=== PATIENT | female | born 1970 | race American Indian/Alaskan Native ===

== ENCOUNTER 2019-02-02 18:49 | Observation (INO) | payer OTHER ==
[2019-02-02] MEDS ORDERED: ASPIRIN 325 MG TAB PO ONE (19:30)
--- NOTE | 2019-02-02 19:30 | Event Note ---
ED Screening Note Date of service: 02/02/19 Time: 19:26 ED Screening Note: 48 y o female presents with cp x yesterday, no current meds radiating pain to left shoulder This initial assessment/diagnostic orders/clinical plan/treatment(s) is/are subject to change based on patients health status, clinical progression and re- assessment by fellow clinical providers in the ED. Further treatment and workup at subsequent clinical providers discretion. Patient/guardian urged not to elope from the ED as their condition may be serious if not clinically assessed and managed. Initial orders include: ekg labs, cxr
[2019-02-02] MEDS ORDERED: ASPIRIN 325 MG TAB ONE (19:34)
--- NOTE | 2019-02-02 20:02 | XRay Report ---
CHEST 2 VIEWS INDICATION / CLINICAL INFORMATION: Chest Pain. COMPARISON: None available. FINDINGS: SUPPORT DEVICES: None. HEART / MEDIASTINUM: No significant abnormality. LUNGS / PLEURA: No significant pulmonary or pleural abnormality. No pneumothorax. ADDITIONAL FINDINGS: No significant additional findings. IMPRESSION: 1. No acute finding. Signer Name: Noah Bean MD Signed: 02/02/2019 7:58 PM Workstation Name: [id number]
[2019-02-02 20:53] LABS: Basophils # (Auto) 0.1 K/mm3 (0.0-0.1); Basophils % (Auto) 0.7 % (0.0-1.8); Eosinophils # (Auto) 0.1 K/mm3 (0.0-0.4); Eosinophils % (Auto) 0.8 % (0.0-4.3); Hematocrit 35.2 % (30.3-42.9); Hemoglobin 11.3 gm/dl (10.1-14.3); Lymphocytes # (Auto) 1.7 K/mm3 (1.2-5.4); Lymphocytes % (Auto) 22.8 % (13.4-35.0); Mean Corpuscular HGB Conc 32 % (30-34); Mean Corpuscular Volume 87 fl (79-97); Monocytes # (Auto) 0.6 K/mm3 (0.0-0.8); Monocytes % (Auto) 8.3 % (0.0-7.3); Platelet Count 217 K/mm3 (140-440); Red Blood Count 4.06 M/mm3 (3.65-5.03); Red Cell Distribution Width 15.7 % (13.2-15.2)
[2019-02-02 21:09] LABS: BUN/Creatinine Ratio 12; Blood Urea Nitrogen 14 mg/dL (7-17); Calcium 8.8 mg/dL (8.4-10.2); Hemolysis Index 5
--- NOTE | 2019-02-03 00:35 | Emergency Department Report ---
ED Chest Pain HPI - General Chief Complaint: Chest Pain Stated Complaint: CHESTPAIN/LEFT SHOULDER Time Seen by Provider: 02/03/19 00:21 Source: patient Mode of arrival: Ambulatory Limitations: No Limitations - History of Present Illness Initial Comments: 48 yo female with a past medical history obesity and hypertension presents to the hospital complaining of intermittent chest pain since yesterday. Patient describes pain as a pressure sensation that it comes and go without aggravating or alleviating factors. Patient complains of some dyspnea on exertion, nausea without vomiting, left shoulder pain radiating to the arm, and diarrhea. Patient states last stress test was 4-5 years ago. She does not smoke cigarettes. Her mom has "heart problems". She has a history of a DVT approximately 7 years ago treated with anticoagulants. Patient is not anticoagulated currently and does not have a filter. She denies recent travel, calf tenderness, or leg edema. Patient has not been on blood pressure medication since her gastric sleeve surgery and weight loss. Last physical was 6 months ago and her blood pressure was okay. PMD: [facility]. Severity scale (0 -10): 5 - Related Data Previous Rx's Medication Instructions Recorded Last Taken Type Pantoprazole [Protonix TAB] 40 mg PO QDAY #14 tablet 02/03/19 Unknown Rx Allergies Allergy/AdvReac Type Severity Reaction Status Date / Time ofloxacin [From Floxin] Allergy Hives Verified 02/02/19 18:50 Heart Score - HEART Score History: Moderately suspicious EKG: Normal Age: 45-65 Risk factors: > 3 risk factors or hx of atherosclerotic disease Troponin: < normal limit HEART Score: 4 ED Review of Systems ROS: Stated complaint: CHESTPAIN/LEFT SHOULDER Other details as noted in HPI Comment: All other systems reviewed and negative ED Past Medical Hx - Past Medical History Previous Medical History?: Yes Hx Hypertension: Yes Hx Deep Vein Thrombosis: Yes (hx of dvt 2011) - Surgical History Hx Cholecystectomy: Yes Additional Surgical History: GASTRIC SLEEVE/ C SECTION X3 - Family History Family history: CAD/[place] (mom) - Social History Smoking Status: Never Smoker Substance Use Type: None - Medications Home Medications: Home Medications Medication Instructions Recorded Confirmed Last Taken Type Pantoprazole [Protonix TAB] 40 mg PO QDAY #14 tablet 02/03/19 Unknown Rx ED Physical Exam - General Limitations: No Limitations ED Course Vital Signs 02/02/19 02/03/19 02/03/19 19:33 00:39 01:00 Temperature 98 F 98 F Pulse Rate 71 64 61 Respiratory 18 21 16 Rate Blood Pressure 153/98 Blood Pressure 177/107 140/80 [Left] O2 Sat by Pulse 99 100 100 Oximetry 02/03/19 02/03/19 02/03/19 01:30 01:40 01:50 Temperature Pulse Rate 62 59 L 58 L Respiratory 16 18 17 Rate Blood Pressure 153/98 143/93 143/93 Blood Pressure [Left] O2 Sat by Pulse 98 98 98 Oximetry 02/03/19 02/03/19 02/03/19 02:00 02:10 02:20 Temperature Pulse Rate 60 59 L 63 Respiratory 16 11 L 16 Rate Blood Pressure 143/93 139/85 139/85 Blood Pressure [Left] O2 Sat by Pulse 98 99 97 Oximetry 02/03/19 02/03/19 02/03/19 02:30 02:35 02:40 Temperature Pulse Rate 63 111 H 65 Respiratory 17 18 Rate Blood Pressure 139/85 160/82 Blood Pressure [Left] O2 Sat by Pulse 98 97 Oximetry 02/03/19 02:50 Temperature Pulse Rate 60 Respiratory 20 Rate Blood Pressure 160/82 Blood Pressure [Left] O2 Sat by Pulse 98 Oximetry HAMMAD score - Hammad Score Age > 65: (0) No Aspirin use within the Past 7 Days: (0) No 3 or more CAD Risk Factors: (0) No 2 or more Angina events in past 24 hrs: (1) Yes Known CAD with more than 50% Stenosis: (0) No Elevated Cardiac Markers: (0) No ST Deviation Greater than 0.5mm: (0) No HAMMAD Score: 1 ED Medical Decision Making - Lab Data Result diagrams: 02/03/19 01:10 02/03/19 01:10 Lab Results 02/02/19 02/02/19 Range/Units 20:44 20:44 WBC 7.6 (4.5-11.0) K/mm3 RBC 4.06 (3.65-5.03) M/mm3 Hgb 11.3 (10.1-14.3) gm/dl Hct 35.2 (30.3-42.9) % MCV 87 (79-97) fl MCH 28 (28-32) pg MCHC 32 (30-34) % RDW 15.7 H (13.2-15.2) % Plt Count 217 (140-440) K/mm3 Lymph % (Auto) 22.8 (13.4-35.0) % [place] % (Auto) 8.3 H (0.0-7.3) % Eos % (Auto) 0.8 (0.0-4.3) % Baso % (Auto) 0.7 (0.0-1.8) % Lymph # 1.7 (1.2-5.4) K/mm3 Rush # 0.6 (0.0-0.8) K/mm3 Eos # 0.1 (0.0-0.4) K/mm3 Baso # 0.1 (0.0-0.1) K/mm3 Seg Neutrophils % 67.4 (40.0-70.0) % Seg Neutrophils # 5.1 (1.8-7.7) K/mm3 Sodium 142 (137-145) mmol/L Potassium 4.3 (3.6-5.0) mmol/L Chloride 104.4 (98-107) mmol/L Carbon Dioxide 25 (22-30) mmol/L Anion Gap 17 mmol/L BUN 14 (7-17) mg/dL Creatinine 1.2 (0.7-1.2) mg/dL Estimated GFR 48 ml/min BUN/Creatinine Ratio 12 % Glucose 95 (65-100) mg/dL Calcium 8.8 (8.4-10.2) mg/dL Troponin T < 0.010 (0.00-0.029) ng/mL - EKG Data -: EKG Interpreted by Mn EKG shows normal: sinus rhythm, ST-T waves (no stemi/t inv) Rate: normal (71) - EKG Data When compared to previous EKG there are: previous EKG unavailable - Radiology Data Radiology results: report reviewed (cxr: naf read by radiology) - Medical Decision Making Patient be admitted to the hospital for further cardiac workup. Heart score of 4. last stress test 4-5 years ago. Patient is not having clinical symptoms of DVT LX tachycardia, hypoxia, or pleural chest pain. Hospitalist informed for admission. - Differential Diagnosis mi, stable angina, pulmonary embolism, atypical chest pain, msk pain Critical Care Time: No Critical care attestation.: If time is entered above; I have spent that time in minutes in the direct care of this critically ill patient, excluding procedure time. ED Disposition Clinical Impression: Chest pain, Hypertension Disposition: OP ADMIT IP TO THIS HOSP Is pt being admited?: Yes Does the pt Need Aspirin: Yes Condition: Stable Time of Disposition: 00:45 (Dr mckeon/hosp)
[2019-02-03] MEDS ORDERED: ONDANSETRON 4 MG/2 ML INJ IV PRN (00:50)
[2019-02-03] MEDS ORDERED: ACETAMINOPHEN 325 MG TAB PO PRN (00:50)
[2019-02-03] MEDS ORDERED: MORPHINE 2 MG/1 ML INJ IV PRN (00:50)
--- NOTE | 2019-02-03 01:21 | History and Physical Report ---
<FEDERICA DELGADILLO - Last Filed: 02/03/19 01:17> History of Present Illness Date of examination: 02/03/19 Date of admission: 02/03/2019 Chief complaint: chest pain History of present illness: 48-year-old -[place] female with history of hypertension, obesity status post gastric sleeve surgery, DVT (2011) who presents to [facility] ED wit complaints of left sided substernal chest pain. Patient stats that while she was at working sitting at her desk, she felt a dully achy pain to the center of her chest. She rates the pain 7/10. There were no aggrivating or relieving factors. The pain resolved on its own, but returned the following day. Once again she was at work sitting down when she felt the pain. Her pain was now accompained by nausea and diarrhea with radiation to left neck and shoulder. The pain was int ermittent throughout the day, so she decided to come to ED for further evaluation. She admits to some mild dyspnea on exertion, which improves with rest. She denies emesis and diaphoresis. Pt's mother and maternal grandmother (both are now ) had cardiac issues. Her mother at age 60 from complication with heart disease and ESRD. Her grandmother at age 72 from a massive DC. Past History Past Medical History: DVT ( DVT 2011 not on anticoagulation), hypertension (off antihypertensive meds s/p gastric bypass surgery), other (obesity) Past Surgical History: cholecystectomy, (x3), Other (gastric sleeve) Social history: lives with family Family history: CAD, other (mother ESRD, CAD at age 60, maternal grandmother DC at age 72) Medications and Allergies Allergies Allergy/AdvReac Type Severity Reaction Status Date / Time ofloxacin [From Floxin] Allergy Hives Verified 02/02/19 18:50 Home Medications Medication Instructions Recorded Confirmed Last Taken Type No Known Home Medications [No 02/03/19 02/03/19 Unknown History Reported Home Medications] Active Meds: Active Medications Acetaminophen (Tylenol) 650 mg PO Q4H PRN PRN Reason: Pain MILD(1-3)/Fever >100.5/JAIMES Aspirin (Baby Aspirin) 81 mg PO QDAY FLORENTINO Atorvastatin Calcium (Lipitor) 40 mg PO QHS FLORENTINO Enoxaparin Sodium (Enoxaparin) 40 mg SUB-Q QDAY FLORENTINO Morphine Sulfate (Morphine) 2 mg IV Q4H PRN PRN Reason: Pain, Moderate (4-6) Ondansetron HCl (Zofran) 4 mg IV Q8H PRN PRN Reason: Nausea And Vomiting Pantoprazole Sodium (Protonix) 40 mg PO QDAY FLORENTINO Sodium Chloride (Sodium Chloride Flush Syringe 10 Ml) 10 ml IV BID FLORENTINO Sodium Chloride (Sodium Chloride Flush Syringe 10 Ml) 10 ml IV PRN PRN PRN Reason: LINE FLUSH Review of Systems All systems: negative Cardiovascular: chest pain, shortness of breath Gastrointestinal: nausea, diarrhea Exam - Physical Exam Narrative exam: Physical exam General appearance: Present: No acute distress, alert and oriented 3, pleasant, well-developed, obese, adult - EENT Eyes: Present: PERRL, EOM intact ENT: hearing intact, normal dentition - Neck Neck: Present: supple, normal ROM - Respiratory Respiratory effort: Non-labored Respiratory: Clear throughout - Cardiovascular Heart rate: 71 (bpm) Rhythm: Sinus rhythm Heart Sounds: Present: S1 & S2. Absent: rub, click - Extremities Extremities: no ischemia, pulses intact, - Peripheral Assessment Peripheral Pulses: within normal limits - Abdominal General gastrointestinal: soft, non-tender, normal bowel sounds - Integumentary Integumentary: Present: warm, dry - Musculoskeletal Musculoskeletal: Able to move all extremities -Neurological Neurological: CN II-XII intact - Psychiatric Psychiatric: Appropriate for situation ,cooperative - Constitutional Vitals: Temp Pulse Resp BP Pulse Ox 98 F 64 21 140/80 100 02/03/19 00:39 02/03/19 00:39 02/03/19 00:39 02/03/19 00:39 02/03/19 00:39 Results - Labs CBC & Chem 7: 02/02/19 20:44 02/02/19 20:44 Labs: Laboratory Last Values WBC 7.6 K/mm3 (4.5-11.0) 02/02/19 20:44 RBC 4.06 M/mm3 (3.65-5.03) 02/02/19 20:44 Hgb 11.3 gm/dl (10.1-14.3) 02/02/19 20:44 Hct 35.2 % (30.3-42.9) 02/02/19 20:44 MCV 87 fl (79-97) 02/02/19 20:44 MCH 28 pg (28-32) 02/02/19 20:44 MCHC 32 % (30-34) 02/02/19 20:44 RDW 15.7 % (13.2-15.2) H 02/02/19 20:44 Plt Count 217 K/mm3 (140-440) 02/02/19 20:44 Lymph % (Auto) 22.8 % (13.4-35.0) 02/02/19 20:44 [place] % (Auto) 8.3 % (0.0-7.3) H 02/02/19 20:44 Eos % (Auto) 0.8 % (0.0-4.3) 02/02/19 20:44 Baso % (Auto) 0.7 % (0.0-1.8) 02/02/19 20:44 Lymph # 1.7 K/mm3 (1.2-5.4) 02/02/19 20:44 [place] # 0.6 K/mm3 (0.0-0.8) 02/02/19 20:44 Eos # 0.1 K/mm3 (0.0-0.4) 02/02/19 20:44 Baso # 0.1 K/mm3 (0.0-0.1) 02/02/19 20:44 Seg Neutrophils % 67.4 % (40.0-70.0) 02/02/19 20:44 Seg Neutrophils # 5.1 K/mm3 (1.8-7.7) 02/02/19 20:44 Sodium 142 mmol/L (137-145) 02/02/19 20:44 Potassium 4.3 mmol/L (3.6-5.0) 02/02/19 20:44 Chloride 104.4 mmol/L (98-107) 02/02/19 20:44 Carbon Dioxide 25 mmol/L (22-30) 02/02/19 20:44 Anion Gap 17 mmol/L 02/02/19 20:44 BUN 14 mg/dL (7-17) 02/02/19 20:44 Creatinine 1.2 mg/dL (0.7-1.2) 02/02/19 20:44 Estimated GFR 48 ml/min 02/02/19 20:44 BUN/Creatinine Ratio 12 % 02/02/19 20:44 Glucose 95 mg/dL (65-100) 02/02/19 20:44 Calcium 8.8 mg/dL (8.4-10.2) 02/02/19 20:44 Troponin T < 0.010 ng/mL (0.00-0.029) 02/02/19 20:44 - Imaging and Cardiology Imaging and Cardiology: CXR; FINDINGS: SUPPORT DEVICES: None. HEART / MEDIASTINUM: No significant abnormality. LUNGS / PLEURA: No significant pulmonary or pleural abnormality. No pneu mothorax. ADDITIONAL FINDINGS: No significant additional findings. IMPRESSION: 1. No acute finding. Assessment and Plan Assessment and plan: 48-year-old -[place] female with history of hypertension, obesity status post gastric sleeve surgery, DVT (2011) who presents to [facility] ED wit complaints of left sided substernal chest pain with radiation to left neck and shoulder. Will admit as OBS to Telemetry for further evaluation. Acute Chest Pain R/O ACS -Initiate chest pain protocol -Continuous telemetry monitoring -Continue supportive care -Pain mgmt -Troponin negative x 1 , will continue to trend -EKG unrevealing for acute ischemic abnormalities -CXR negative for acute cardiopulmonary abnormalities -Treadmill stress test pending HTN -Hx hypertension -Not currently on antihypertensive meds (off meds since gastric sleeve surgery) -Monitor BP -IV hydralazine when necessary DVT PPX -On Lovenox Advance Directives: No VTE prophylaxis?: Chemical Plan of care discussed with patient/family: Yes <JEFFERSON OLSON - Last Filed: 02/03/19 01:46> History of Present Illness Date of admission: 02/03/19 00:50 Medications and Allergies Active Meds: Active Medications Acetaminophen (Tylenol) 650 mg PO Q4H PRN PRN Reason: Pain MILD(1-3)/Fever >100.5/JAIMES Aspirin (Baby Aspirin) 81 mg PO QDAY FLORENTINO Atorvastatin Calcium (Lipitor) 40 mg PO QHS FLORENTINO Enoxaparin Sodium (Enoxaparin) 40 mg SUB-Q QDAY FLORENTINO Hydralazine HCl (Apresoline) 10 mg IV Q4HR PRN PRN Reason: Blood Pressure Morphine Sulfate (Morphine) 2 mg IV Q4H PRN PRN Reason: Pain, Moderate (4-6) Ondansetron HCl (Zofran) 4 mg IV Q8H PRN PRN Reason: Nausea And Vomiting Pantoprazole Sodium (Protonix) 40 mg PO QDAY FLORENTINO Sodium Chloride (Sodium Chloride Flush Syringe 10 Ml) 10 ml IV BID FLORENTINO Sodium Chloride (Sodium Chloride Flush Syringe 10 Ml) 10 ml IV PRN PRN PRN Reason: LINE FLUSH Exam - Constitutional Vitals: Temp Pulse Resp BP Pulse Ox 98 F 62 16 153/98 98 02/03/19 00:39 02/03/19 01:30 02/03/19 01:30 02/03/19 01:30 02/03/19 01:30 Results - Labs CBC & Chem 7: 02/03/19 01:10 02/02/19 20:44 Labs: Laboratory Last Values WBC 7.6 K/mm3 (4.5-11.0) 02/03/19 01:10 RBC 3.83 M/mm3 (3.65-5.03) 02/03/19 01:10 Hgb 10.7 gm/dl (10.1-14.3) 02/03/19 01:10 Hct 33.2 % (30.3-42.9) 02/03/19 01:10 MCV 87 fl (79-97) 02/03/19 01:10 MCH 28 pg (28-32) 02/03/19 01:10 MCHC 32 % (30-34) 02/03/19 01:10 RDW 15.5 % (13.2-15.2) H 02/03/19 01:10 Plt Count 219 K/mm3 (140-440) 02/03/19 01:10 Lymph % (Auto) 24.3 % (13.4-35.0) 02/03/19 01:10 [place] % (Auto) 7.8 % (0.0-7.3) H 02/03/19 01:10 Eos % (Auto) 0.6 % (0.0-4.3) 02/03/19 01:10 Baso % (Auto) 0.9 % (0.0-1.8) 02/03/19 01:10 Lymph # 1.8 K/mm3 (1.2-5.4) 02/03/19 01:10 [place] # 0.6 K/mm3 (0.0-0.8) 02/03/19 01:10 Eos # 0.0 K/mm3 (0.0-0.4) 02/03/19 01:10 Baso # 0.1 K/mm3 (0.0-0.1) 02/03/19 01:10 Seg Neutrophils % 66.4 % (40.0-70.0) 02/03/19 01:10 Seg Neutrophils # 5.0 K/mm3 (1.8-7.7) 02/03/19 01:10 Sodium 142 mmol/L (137-145) 02/02/19 20:44 Potassium 4.3 mmol/L (3.6-5.0) 02/02/19 20:44 Chloride 104.4 mmol/L (98-107) 02/02/19 20:44 Carbon Dioxide 25 mmol/L (22-30) 02/02/19 20:44 Anion Gap 17 mmol/L 02/02/19 20:44 BUN 14 mg/dL (7-17) 02/02/19 20:44 Creatinine 1.2 mg/dL (0.7-1.2) 02/02/19 20:44 Estimated GFR 48 ml/min 02/02/19 20:44 BUN/Creatinine Ratio 12 % 02/02/19 20:44 Glucose 95 mg/dL (65-100) 02/02/19 20:44 Calcium 8.8 mg/dL (8.4-10.2) 02/02/19 20:44 Troponin T < 0.010 ng/mL (0.00-0.029) 02/02/19 20:44 Assessment and Plan Assessment and plan: 48-year-old with history of hypertension plus emergency room with complaints of chest pain in the left substernal area radiating to the left shoulder and neck. Agree with cardiac enzymes, stress test
[2019-02-03] MEDS ORDERED: hydrALAZINE 20 MG/1 ML INJ IV PRN (01:23)
[2019-02-03 01:34] LABS: Basophils # (Auto) 0.1 K/mm3 (0.0-0.1); Basophils % (Auto) 0.9 % (0.0-1.8); Eosinophils % (Auto) 0.6 % (0.0-4.3); Hematocrit 33.2 % (30.3-42.9); Hemoglobin 10.7 gm/dl (10.1-14.3); Lymphocytes # (Auto) 1.8 K/mm3 (1.2-5.4); Lymphocytes % (Auto) 24.3 % (13.4-35.0); Mean Corpuscular HGB Conc 32 % (30-34); Mean Corpuscular Volume 87 fl (79-97); Monocytes # (Auto) 0.6 K/mm3 (0.0-0.8); Monocytes % (Auto) 7.8 % (0.0-7.3); Platelet Count 219 K/mm3 (140-440); Red Blood Count 3.83 M/mm3 (3.65-5.03); Red Cell Distribution Width 15.5 % (13.2-15.2)
[2019-02-03 01:52] LABS: BUN/Creatinine Ratio 13; Blood Urea Nitrogen 14 mg/dL (7-17); Calcium 8.5 mg/dL (8.4-10.2); Hemolysis Index 4
[2019-02-03 09:35] VITALS: BP 141/91
[2019-02-03] MEDS ORDERED: PANTOPRAZOLE 40 MG TAB PO SCH (10:00)
[2019-02-03] MEDS ORDERED: ENOXAPARIN 40 MG/0.4 ML INJ SUB-Q SCH (10:00)
[2019-02-03] MEDS ORDERED: ASPIRIN 81 MG TAB CHEW PO SCH (10:00)
[2019-02-03] MEDS ORDERED: FLU VACC QUAD 2019-20 (3 YR UP)/PF 60 MCG/0.5 ML SYRINGE IM ONE (12:00)
--- NOTE | 2019-02-03 14:08 | Discharge Summary ---
Providers - Providers Date of Admission: 02/03/19 00:50 Attending physician: JEFFERSON OLSON 02/03/19 Consult to Cardiac Rehabilitation [CONS] Routine Reason For Exam: Phase I Primary care physician: [facility] MD JACKLYN Hospitalization Condition: Stable Exam - Constitutional Vitals: Temp Pulse Resp BP Pulse Ox 97.5 F L 59 L 18 141/91 95 02/03/19 07:59 02/03/19 05:35 02/03/19 07:59 02/03/19 09:03 02/03/19 05:35 Plan Follow up with: ALVARO STOVALL MD [Primary Care Provider] - 7 Days
--- NOTE | 2019-02-03 14:26 | Discharge Summary ---
Providers - Providers Date of Admission: 02/03/19 00:50 Date of discharge: 02/03/19 Attending physician: BHANU ATKINS 02/03/19 Consult to Cardiac Rehabilitation [CONS] Routine Reason For Exam: Phase I [facility] Reason for admission: Chest pain Condition: Stable Pertinent studies: CXR Stress test:no ischemia Hospital course: 48-year-old -Iranian female with history of hypertension, obesity status post gastric sleeve surgery, DVT (2011) who presents to [facility] ED wit complaints of left sided substernal chest pain. Patient stats that while she was at working sitting at her desk, she felt a dully achy pain to the center of her chest. She rates the pain 7/10. There were no aggrivating or relieving factors. The pain resolved on its own, but returned the following day. Once again she was at work sitting down when she felt the pain. Her pain was now accompained by nausea and diarrhea with radiation to left neck and shoulder. The pain was intermittent throughout the day, so she decided to come to ED for further evaluation. Patient was admitted managed appropriately,Stress test negative for ischemia. Chest pain probably due to GERD,managed with protonix,Advised weight reduction when medically stable Today patient is comfortable,no new complaints,vital signs stable Stable at discharge. Disposition: DC-01 TO HOME OR SELFCARE Time spent for discharge: 32 min - Discharge Diagnoses (1) Chest pain Status: Acute (2) GERD (gastroesophageal reflux disease) Status: Acute (3) Obesity (BMI 30-39.9) Status: Acute Core Measure Documentation - Palliative Care Palliative Care/ Comfort Measures: Not Applicable - Core Measures Any of the following diagnoses?: none Exam - Constitutional Vitals: Temp Pulse Resp BP Pulse Ox 97.5 F L 59 L 18 141/91 95 02/03/19 07:59 02/03/19 05:35 02/03/19 07:59 02/03/19 09:03 02/03/19 05:35 General appearance: Present: no acute distress, well-nourished, obese - EENT Eyes: Present: PERRL, EOM intact - Neck Neck: Present: supple, normal ROM - Respiratory Respiratory effort: normal Respiratory: negative: rales, rhonchi, wheezing - Cardiovascular Rhythm: regular Heart Sounds: Present: S1 & S2 - Extremities Extremities: no ischemia, No edema - Abdominal General gastrointestinal: Present: soft, non-tender, non-distended, normal bowel sounds - Integumentary Integumentary: Present: clear, warm - Musculoskeletal Musculoskeletal: strength equal bilaterally - Psychiatric Psychiatric: appropriate mood/affect, cooperative - Neurologic Neurologic: moves all extremities Plan Activity: no restrictions Diet: regular Additional Instructions: Exercise as tolerated and weight reduction when medically stable. Advised to see private manager pathology for further evaluation and management. If you have recurrent chest pain, contact M.D. or go to emergency room. Advised [id number] pain medications as needed Follow up with: ALVARO STOVALL MD [Primary Care Provider] - 7 Days LEONIDES MAK MD [Staff Physician] - 7 Days Prescriptions: Pantoprazole [Protonix TAB] 40 mg PO QDAY #14 tablet
--- NOTE | 2019-02-03 19:04 | Treadmill Report ---
TREADMILL STRESS TEST REPORT REASON FOR STUDY: Chest pain. STRESS TEST PROTOCOL: The patient completed 9 minutes and 21 seconds of a Gaurav protocol. She attained a peak heart rate of 171 per minute, which is 98% of her age predicted maximum (10.5 mets). No diagnostic ischemic ECG changes. No chest pain. No arrhythmias. The test was terminated due to fatigue. IMPRESSION: Negative stress test. No evidence of stress-induced ischemia. JOB# [id number] JOHAN/DEJA CAT
== END 2019-02-03 15:30 | disposition home or self-care (01) ==
LOC: ED 18:49 → 4A 02-03 00:50
PROVIDERS: ADMIT Internal Medicine; ATTEND Internal Medicine
DX: R07.2 Precordial pain (principal); I10 Essential (primary) hypertension; E66.9 Obesity, unspecified; Z86.718 Personal history of other venous thrombosis and embolism; Z90.49 Acquired absence of other specified parts of digestive tract; Z98.891 History of uterine scar from previous surgery; Z98.84 Bariatric surgery status; Z68.38 Body mass index [BMI] 38.0-38.9, adult
CPT/HCPCS: 36415; 71046; 80048; 84484; 85025; 90686; 93005; 93010; 93017; 96372; 99284; G0378; J1650